=== PATIENT | female | born 1975 | race Caucasian/White ===

== ENCOUNTER 2022-06-12 18:26 | Emergency (ER) | payer MEDICAID, SELFPAY ==
[2022-06-12 18:27] VITALS: BP 206/129; PULSE 106; RESP 20; TEMP 36.6; O2SAT 96; BMI 25.1
--- NOTE | 2022-06-12 18:34 | XRR_ITS ---
PROCEDURE INFORMATION: Exam: XR Left Hand Exam date and time: 06/12/2022 6:41 PM Age: 46 years old Clinical indication: Injury or trauma; Other: Wound; Bite and laceration; Little finger; Left; Patient HX: Dog bite or lac by dog collar - PT is unsure which TECHNIQUE: Imaging protocol: Radiologic exam of the left hand. Views: 3 or more views. COMPARISON: No relevant prior studies available. FINDINGS: Bones/joints: There is dorsal dislocation of 1 shaft width with approximately 2.5 mm of override at the 5th proximal phalanx on the left hand. There is an associated intra-articular corner fracture at the volar base of the 5th middle phalanx with small bone fragments both anterior and posterior to the 5th proximal phalanx. Normal bone mineralization. Soft tissues: Soft tissue swelling/emphysema at the left 5th finger. No radiopaque foreign body. XR/XR hand LT min 3V* [id number] IMPRESSION: 1. There is dorsal dislocation of 1 shaft width with approximately 2.5 mm of override at the 5th proximal phalanx on the left hand. There is an associated intra-articular corner fracture at the volar base of the 5th middle phalanx with small bone fragments both anterior and posterior to the 5th proximal phalanx. 2. Soft tissue swelling/emphysema at the left 5th finger.
--- NOTE | 2022-06-12 18:36 | W.ED.WOUNDLC ---
Documented by User: MARK Wyatt 06/12/22 20:45 HPI - Wound/Laceration General: Chief Complaint: Wound/Laceration Stated Complaint: left hand finger lac Time Seen by Provider: 06/12/22 18:35 History of Present Illness: 46-year-old female comes in today for a laceration to the little finger on the left hand. Patient reports that she was breaking up 2 dogs that were fighting and grabbed a hold of the collar which and twisted her finger causing it to cause a avulsion/laceration just prior to arrival to ER. Patient reports that her tetanus is up-to-date. Patient appears nontoxic. Patient reports no chronic medical problems. Associated symptoms: Denies vomiting Review of Systems General: Reports: 10 or more systems reviewed and unremarkable except in HPI and below Card: Denies: chest pain Resp: Denies: dyspnea GI: Denies: vomiting : Denies: flank pain Musc: Reports: extremity pain Skin/Breast: Reports: new lesions Physical Exam Const: COMMON NORMALS: alert HENMT: COMMON NORMALS: normocephalic HEAD & SCALP: normocephalic Neck/C-Spine: COMMON NORMALS: full ROM Resp: COMMON NORMALS: normal respiratory effort Cardio: COMMON NORMALS: regular rate RATE: regular rate : COMMON NORMALS: Yes no CVA tenderness BLADDER/KIDNEY EXAM: Yes no CVA tenderness Back/Pelvis: COMMON NORMALS: no CVA tenderness Neuro: SENSORIUM/ORIENTATION: Yes alert Skin: TRAUMA: laceration (Irregular laceration to the volar little finger left hand) irregular Procedures Laceration Laceration 1: Site: upper extremity Side (If applicable): left Size (cm): 2 Description: linear Local Anesthetic: lidocaine 1% Amount of anesthesia used (mL): 5 Pre-repair: wound explored and irrigated extensively Skin layer closed with: nylon Size (cm): 4-0 Number of sutures: 4 Technique: simple, interrupted Orthopedic Joint Reduction Joint #1: Side: left Joint Reduction Location: finger Analgesia: nerve block (Finger digit) Local Anesthesia: lidocaine 1% Amount of anesthesic used (mL): 5 Technique used: direct manipulation Post-reduction neuro exam: intact Post-reduction vascular: intact Post Reduction X-Ray Obtained: Yes Post Reduction X-Ray Results: reduced Splint Applied: Yes Patient Tolerated Procedure: well Course Vital Signs: Vital signs: Vital Signs Temperature 97.8 F 06/12/22 18:27 Pulse Rate 106 H 06/12/22 20:00 Respiratory Rate 16 06/12/22 20:00 Blood Pressure 206/129 06/12/22 18:27 Pulse Oximetry 93 06/12/22 20:00 Oxygen Delivery Me thod Room Air 06/12/22 18:27 MDM - Wound/Laceration Medical Decision Making 46-year-old female comes in today for injury to the little finger of the left hand. On exam patient has distal cap refill and sensation. Patient has some swelling and an avulsion/laceration to the proximal volar aspect of the little finger. Patient has difficulty with range of motion of the finger due to swelling and pain. No obvious tendon laceration was noted. Differential diagnosis includes fracture, dislocation, tendon injury. X-ray of the finger noted a dislocation of the PIP joint. There was also some fractures in the joint. X-ray of the sacrum due to discomfort and pain noted no acute fracture. I reviewed this with Dr. Plasencia, attending ER physician. He agreed with my plan to reduce the finger, repair of the wound, placed finger in splint and have her follow-up with orthopedics. Finger was reduced without difficulty. Patient did have movement of the finger after reduction and neurovascular was intact. Wound was irrigated thoroughly with saline and closed with sutures. Patient tolerated well. Telfa dressing was applied along with gauze and then posterior aluminum splint. Case management was requested to have patient follow-up with orthopedics. Lab Data Radiology Impressions Hand X-Ray 06/12/22 18:34 IMPRESSION: 1. There is dorsal dislocation of 1 shaft width with approximately 2.5 mm of override at the 5th proximal phalanx on the left hand. There is an associated intra-articular corner fracture at the volar base of the 5th middle phalanx with small bone fragments both anterior and posterior to the 5th proximal phalanx. 2. Soft tissue swelling/emphysema at the left 5th finger. Sacrum and Coccyx X-Ray 06/12/22 18:46 IMPRESSION: No acute fracture. CT scan of the sacrum/coccyx would be recommended if clinical concern for fracture persists. Finger X-Ray 06/12/22 19:30 IMPRESSION: 1. Fracture at the base of the left 5th middle phalanx with displacement of small bone fragments ventrally and dorsally. 2. A small corner fracture of the volar base of the 5th distal phalanx is better visualized compared with the prior images. 3. Stable mild soft tissue swelling at the left 5th finger. Discharge Plan Discharge Patient Disposition: Home Clinical Impression: Dislocation of finger, left, open Qualifiers: Encounter type: initial encounter Qualified Code(s): S63.259A - Unspecified dislocation of unspecified finger, initial encounter Contusion of sacrococcygeal region Qualifiers: Encounter type: initial encounter Qualified Code(s): S30.0XXA - Contusion of lower back and pelvis, initial encounter Condition: Stable Prescriptions: New amoxicillin-pot clavulanate 875-125 mg tablet 1 tab PO BID Qty: 20 0RF hydrocodone-acetaminophen 5-325 mg tablet 1 tab PO Q8H PRN (Reason: pain (scale score 7-10)) Qty: 7 0RF Discharge Orders: Discharge ED (Routine); Ordered 06/12/22 Ordered By: David Loya Referrals: Jessica Enciso APN [Primary Care Provider] - Patient Instructions: Finger Laceration (ED) Activity Restrictions/Additional Instructions: Home and rest. Keep wound clean and dry. Is very important keep the wound as dry as possible for the next 48 hours. Change dressing if it becomes wet or soiled. Follow-up with orthopedist in 2 to 3 days for recheck. Case management will contact you regarding follow-up appointment with orthopedics for repeat evaluation and further treatment as needed. Take antibiotics as directed. Return to ER for worsening symptoms such as high fever, nausea and vomiting, or new concerns. Coding Level of Care Code ED Optician Apprentice for Chg Fwd Documented by User: Iam Plasencia DO 06/13/22 00:26 HPI - Wound/Laceration General: Chief Complaint: Wound/Laceration Stated Complaint: left hand finger lac Time Seen by Provider: 06/12/22 18:35 Course Vital Signs: Vital signs: Vital Signs Temperature 97.8 F 06/12/22 18:27 Pulse Rate 106 H 06/12/22 20:00 Respiratory Rate 16 06/12/22 20:00 Blood Pressure 206/129 06/12/22 18:27 Pulse Oximetry 93 06/12/22 20:00 Oxygen Delivery Me thod Room Air 06/12/22 18:27 MDM - Wound/Laceration Medical Decision Making 46-year-old female comes in today for injury to the little finger of the left hand. On exam patient has distal cap refill and sensation. Patient has some swelling and an avulsion/laceration to the proximal volar aspect of the little finger. Patient has difficulty with range of motion of the finger due to swelling and pain. No obvious tendon laceration was noted. Differential diagnosis includes fracture, dislocation, tendon injury. X-ray of the finger noted a dislocation of the PIP joint. There was also some fractures in the joint. X-ray of the sacrum due to discomfort and pain noted no acute fracture. I reviewed this with Dr. Plasencia, attending ER physician. He agreed with my plan to reduce the finger, repair of the wound, placed finger in splint and have her follow-up with orthopedics. Finger was reduced without difficulty. Patient did have movement of the finger after reduction and neurovascular was intact. Wound was irrigated thoroughly with saline and closed with sutures. Patient tolerated well. Telfa dressing was applied along with gauze and then posterior aluminum splint. Case management was requested to have patient follow-up with orthopedics. This patient was originally seen by MARK Ye.? I agree with his history, evaluation, and treatment. Lab Data Radiology Impressions Hand X-Ray 06/12/22 18:34 IMPRESSION: 1. There is dorsal dislocation of 1 shaft width with approximately 2.5 mm of override at the 5th proximal phalanx on the left hand. There is an associated intra-articular corner fracture at the volar base of the 5th middle phalanx with small bone fragments both anterior and posterior to the 5th proximal phalanx. 2. Soft tissue swelling/emphysema at the left 5th finger. Sacrum and Coccyx X-Ray 06/12/22 18:46 IMPRESSION: No acute fracture. CT scan of the sacrum/coccyx would be recommended if clinical concern for fracture persists. Finger X-Ray 06/12/22 19:30 IMPRESSION: 1. Fracture at the base of the left 5th middle phalanx with displacement of small bone fragments ventrally and dorsally. 2. A small corner fracture of the volar base of the 5th distal phalanx is better visualized compared with the prior images. 3. Stable mild soft tissue swelling at the left 5th finger. Discharge Plan Discharge Patient Disposition: Home Clinical Impression: Dislocation of finger, left, open Qualifiers: Encounter type: initial encounter Qualified Code(s): S63.259A - Unspecified dislocation of unspecified finger, initial encounter Contusion of sacrococcygeal region Qualifiers: Encounter type: initial encounter Qualified Code(s): S30.0XXA - Contusion of lower back and pelvis, initial encounter Condition: Stable Prescriptions: New amoxicillin-pot clavulanate 875-125 mg tablet 1 tab PO BID Qty: 20 0RF hydrocodone-acetaminophen 5-325 mg tablet 1 tab PO Q8H PRN (Reason: pain (scale score 7-10)) Qty: 7 0RF Discharge Orders: Discharge ED (Routine); Ordered 06/12/22 Ordered By: David Loya Referrals: Jessica Enciso APN [Primary Care Provider] - Patient Instructions: Finger Laceration (ED) Activity Restrictions/Additional Instructions: Home and rest. Keep wound clean and dry. Is very important keep the wound as dry as possible for the next 48 hours. Change dressing if it becomes wet or soiled. Follow-up with orthopedist in 2 to 3 days for recheck. Case management will contact you regarding follow-up appointment with orthopedics for repeat evaluation and further treatment as needed. Take antibiotics as directed. Return to ER for worsening symptoms such as high fever, nausea and vomiting, or new concerns. Coding Level of Care Code ED Optician Apprentice for Lino Stewart
--- NOTE | 2022-06-12 18:46 | XRR_ITS ---
PROCEDURE INFORMATION: Exam: XR Sacrum and Coccyx, 2 or More Views Exam date and time: 06/12/2022 6:47 PM Age: 46 years old Clinical indication: Pain and injury or trauma; Fall; Blunt trauma (contusions or hematomas); Pain in coccyx area; Additional info: Fall injury TECHNIQUE: Imaging protocol: XR of the sacrum and coccyx, 2 or more views. COMPARISON: No relevant prior studies available. FINDINGS: Bones/joints: The right and left sacroiliac joints are unremarkable. No acute fracture. No dislocation. Normal bone mineralization. No joint effusion. Joint spaces are maintained. Soft tissues: No soft tissue swelling. No radiopaque foreign body. XR/XR sacrum coccyx min 2V [id number] IMPRESSION: No acute fracture. CT scan of the sacrum/coccyx would be recommended if clinical concern for fracture persists.
[2022-06-12] MEDS: HYDROcodone-acetaminophen 7.5-325 mg Tablet 1 TAB PO (19:05)
[2022-06-12] MEDS: amoxicillin-clav 875-125 mg Tablet 1 TAB PO (19:05)
[2022-06-12] MEDS: lidocaine 1% INJ 10 mL (per mL) INJECTION (19:17)
--- NOTE | 2022-06-12 19:30 | XRR_ITS ---
PROCEDURE INFORMATION: Exam: XR Left Finger(s) Exam date and time: 06/12/2022 7:39 PM Age: 46 years old Clinical indication: Injury or trauma; Other: Post reduction; Dislocation and fracture, traumatic injury; Closed fracture; Severity not specified; Left; Little finger; Additional info: Post reduction little finger TECHNIQUE: Imaging protocol: Radiologic exam of the left fingers. Views: Minimum 2 views. COMPARISON: CR ([facility], ) 06/12/2022 6:41 PM FINDINGS: Bones/joints: Interval closed reduction of the dislocation at the left 5th proximal phalanx. Fracture at the base of the left 5th middle phalanx with displacement of small bone fragments ventrally and dorsally. Mild degenerative changes at the 5th distal phalanx. A small corner fracture of the volar base of the 5th distal phalanx is better visualized compared with the prior images. No dislocation. Normal bone mineralization. Soft tissues: Stable mild soft tissue swelling at the left 5th finger. No radiopaque foreign body. XR/XR finger LT min 2V [id number] IMPRESSION: 1. Fracture at the base of the left 5th middle phalanx with displacement of small bone fragments ventrally and dorsally. 2. A small corner fracture of the volar base of the 5th distal phalanx is better visualized compared with the prior images. 3. Stable mild soft tissue swelling at the left 5th finger.
[2022-06-12 20:00] VITALS: PULSE 106; RESP 16; O2SAT 93
--- NOTE | 2022-06-13 09:47 | DCPLANNER ---
Addendum entered by Jennifer Mandel 06/17/22 08:57: Patient had a follow up appointment scheduled with ortho - patient did attend appointment. Addendum entered by Jennifer Mandel 06/14/22 11:13: Patient has a follow up appointment scheduled for , June 16, 2022 at 2:00 with Anselmo Lozano at ortho. Original Note: photography manager had message to schedule a follow up appointment for patient with ortho. photography manager sent patients information to the front office staff at ortho. Patients information will be printed and reviewed. Clinic will call patient with appointment information.
== END 2022-06-12 19:58 | disposition home or self-care (01) ==
PROVIDERS: Emergency Provider Nurse Practitioner Family; PCP Nurse Practitioner Family
DX: S63.287A Dislocation of proximal interphalangeal joint of left little finger, initial encounter (principal); S61.217A Laceration without foreign body of left little finger without damage to nail, initial encounter; S30.0XXA Contusion of lower back and pelvis, initial encounter; S62.627A Displaced fracture of middle phalanx of left little finger, initial encounter for closed fracture; W23.0XXA Caught, crushed, jammed, or pinched between moving objects, initial encounter
CPT/HCPCS: 12001; 26770; 72220; 73130; 73140; 99284; A6446

== ENCOUNTER → 2022-06-16 10:54 | Outpatient (BNVA) | payer MEDICAID, SELFPAY | PROVIDERS: PCP Nurse Practitioner Family; Referring Provider Nurse Practitioner Family; Visit Provider Nurse Practitioner Family | DX: S62.637B Displaced fracture of distal phalanx of left little finger, initial encounter for open fracture (principal); S62.617B Displaced fracture of proximal phalanx of left little finger, initial encounter for open fracture; W23.0XXA Caught, crushed, jammed, or pinched between moving objects, initial encounter | CPT/HCPCS: 73130 ==

== ENCOUNTER 2024-08-26 10:26 | Outpatient (CLI) | payer BC, SELFPAY ==
[2024-08-26 12:10] LABS: INR 0.87 (0.8-1.2)
[2024-08-26 12:12] LABS: Fibrinogen 596 mg/dL (174-498)
[2024-08-26 12:18] LABS: C Reactive Protein 5.1 mg/L (0.0-4.9); Homocysteine 9.23 umol/l (0-15)
[2024-08-27 20:36] LABS: PTT-LA-Screen 34 sec (< OR = 40)
[2024-08-29 06:56] LABS: Anti-Cardiolipin IgA AB <2.0 APL-U/mL
[2024-08-29 18:20] LABS: Factor VIII Activity Clotting 132 % normal (50-180)
[2024-08-29 20:25] LABS: PROTEIN S, ACTIVITY 98 % normal (60-140)
[2024-08-30 00:45] LABS: Antithrombin III Antigen 127 % normal (80-120)
== END 2024-08-26 10:27 | disposition home or self-care (01) ==
PROVIDERS: PCP Nurse Practitioner Family; Visit Provider Thoracic Surgery (Cardiothoracic Vascular Surgery)
DX: D68.51 Activated protein C resistance (principal); D68.52 Prothrombin gene mutation; D68.59 Other primary thrombophilia; Z83.2 Family history of diseases of the blood and blood-forming organs and certain disorders involving the immune mechanism; Z86.718 Personal history of other venous thrombosis and embolism
CPT/HCPCS: 36415; 81241; 83090; 83516; 85210; 85240; 85301; 85303; 85306; 85384; 85610; 85613; 85730; 86140; 86146; 86147

== ENCOUNTER 2024-10-18 09:23 | Outpatient (CLI) | payer BC, SELFPAY ==
--- NOTE | 2024-10-18 09:28 | MM_ITS ---
WS: [id number] SCREENING DIGITAL BREAST TOMOSYNTHESIS MAMMOGRAM WITH CAD HISTORY: SCREENING COMPARISON: None available. Bilateral CC and MLO with tomosynthesis and synthetic mammography submitted. Computer aided detection analyzed. Breast composition: There are scattered areas of fibroglandular density. Focal ovoid asymmetry tubular in appearance in the medial inferior LEFT breast needs further evaluation. The remaining asymmetries are [id number]. No suspicious grouping of calcifications. MM/MM scr tomosynthesis [id number] IMPRESSION: BI-RADS: 0 - Incomplete: Need additional imaging evaluation. FOLLOW UP: Need Additional Imaging LEFT breast: Spot compression views (CC and MLO). True ML. Ultrasound to follow if abnormality persists.
== END 2024-10-18 09:24 | disposition home or self-care (01) ==
LOC: RAD 09:24
PROVIDERS: PCP Nurse Practitioner Family; Visit Provider Nurse Practitioner Family
DX: Z12.31 Encounter for screening mammogram for malignant neoplasm of breast (principal); R92.1 Mammographic calcification found on diagnostic imaging of breast; R92.323 Mammographic fibroglandular density, bilateral breasts; N64.89 Other specified disorders of breast
CPT/HCPCS: 77063; 77067

== ENCOUNTER → 2024-10-29 12:29 | Outpatient (BNVA) | payer BC, SELFPAY | PROVIDERS: PCP Nurse Practitioner Family; Visit Provider Nurse Practitioner Women's Health | DX: Z12.4 Encounter for screening for malignant neoplasm of cervix (principal) | CPT/HCPCS: 87624 ==

== ENCOUNTER 2024-11-05 09:39 | Outpatient (CLI) | payer BC, SELFPAY ==
--- NOTE | 2024-11-05 09:44 | MM_ITS ---
WS: [id number] ADDITIONAL VIEWS LEFT MAMMOGRAM WITH DIGITAL BREAST TOMOSYNTHESIS. LEFT breast ultrasound, limited HISTORY: ABNORMAL MAMMO COMPARISON: 10/18/2024 Spot compression views LEFT breast in CC, MLO projections and true ML submitted with digital breast tomosynthesis and SM. Breast composition: There are scattered areas of fibroglandular density. Mass with fatty hilum measures 1.9 x 0.7 x 1.4 cm in the medial LEFT breast at a middle depth. This may be a lymph node due to the fatty central lucency. No associated calcifications. Ultrasound to follow. LEFT breast ultrasound, limited. Tubular cystic mass with very slight wall thickening LEFT breast 10:00, 4 cm from the nipple. This may be due to adjacent cysts or a single lobulated cyst. The collection measures 0.8 x 0.5 x 1.3 cm. This does correspond in size and location to the mammographic abnormality. MM/MM diag LT tomosynthesis [id number] IMPRESSION: BI-RADS: 3 - Probably Benign. FOLLOW UP: 6 Month Follow-up Recommend LEFT breast ultrasound follow-up in 6 months of the complex cystic ma ss at 10:00.
== END 2024-11-05 09:40 | disposition home or self-care (01) ==
LOC: RAD 09:39
PROVIDERS: PCP Nurse Practitioner Family; Visit Provider Nurse Practitioner Family
DX: R92.8 Other abnormal and inconclusive findings on diagnostic imaging of breast (principal); R92.323 Mammographic fibroglandular density, bilateral breasts; N60.12 Diffuse cystic mastopathy of left breast; N63.21 Unspecified lump in the left breast, upper outer quadrant
CPT/HCPCS: 76642; 77061; G0279

== ENCOUNTER 2024-11-28 09:56 | Outpatient (RCR) | payer BC, SELFPAY | END 2024-12-27 23:59 | disposition home or self-care (01) | LOC: SPT 09:56 | PROVIDERS: PCP Nurse Practitioner Family; Visit Provider Nurse Practitioner Women's Health | DX: R32 Unspecified urinary incontinence (principal); N81.10 Cystocele, unspecified | CPT/HCPCS: 97110; 97161; 97530 ==